=== PATIENT | male | born 1965 | race Caucasian/White ===

== ENCOUNTER 2023-06-24 10:17 | Outpatient (OUT) | payer BC, SELFPAY ==
--- NOTE | 2023-06-24 10:21 | US_ITS ---
[address] [address] Patient Name: JONATHAN WILHELM MRN: [id number] date: 1965 Sex: M Assigned Patient Location: US Current Patient Location: US Accession/Order Number: [id number] Exam Date: 06/24/2023 10:55 Report Date: 06/24/2023 11:41 At the request of: CHRIS MOSHER Procedure: US venous doppler LE LT EXAMINATION: US venous doppler LE LT HISTORY: left leg pain M79.605 COMPARISON: No relevant comparison available. TECHNIQUE: Grayscale, color and Doppler FINDINGS: Region: Left leg Thrombus: No deep vein thrombus. Small amount of echogenic thrombus in the superficial small saphenous vein mid calf Flow: No flow corresponding to thrombus Augmentation: Normal proximal augmentation Compressibility: Noncompressibility corresponding to thrombus US/US venous doppler LE LT IMPRESSION: No deep vein thrombus Small amount of superficial vein thrombus in the mid small saphenous vein *Exam performed in accordance with [facility] practice guidelines- Peripheral venous ultrasound, September 14, 2009. Electronically authenticated by: SARAY HILLS Date: 06/24/2023 11:41
== END 2023-06-24 10:18 | disposition home or self-care (01) ==
LOC: US 10:18
PROVIDERS: PCP Family Medicine; Visit Provider Family Medicine
DX: M79.605 Pain in left leg (principal); M79.89 Other specified soft tissue disorders; I82.812 Embolism and thrombosis of superficial veins of left lower extremity
CPT/HCPCS: 93971